=== PATIENT | male | born 1935 | race Caucasian/White ===

== ENCOUNTER 2017-12-07 12:12 | Outpatient (CLI) | payer MEDICARE ==
[2017-12-07 13:15] LABS: MEAN CORPUSCULAR HEMOGLOBIN 29.2 pg (28.0-34.0); MONOCYTES % 7.1 % (0.0-11.0)
[2017-12-07 13:16] LABS: BASOPHILS % 0.5 (0.0-1.5); EOSINOPHILS % 3.2 % (0.0-6.8); NEUTROPHILS # 5.8 # k/uL (1.4-7.7)
[2017-12-07 13:20] LABS: eGFR (Non-African) > 60
== END 2017-12-07 12:16 ==
LOC: LAB 12:12
PROVIDERS: ATTEND Internal Medicine Cardiovascular Disease
DX: I10 Essential (primary) hypertension (principal); I25.10 Atherosclerotic heart disease of native coronary artery without angina pectoris; E78.00 Pure hypercholesterolemia, unspecified
CPT/HCPCS: 36415; 80053; 80061; 85025

== ENCOUNTER 2018-02-27 14:22 | Observation (INO) | payer MEDICARE ==
[2018-02-27] MEDS ORDERED: IPRATROPIUM/ALBUTEROL SULFATE 3 ML AMPUL.NEB NEB STA (14:45)
--- NOTE | 2018-02-27 14:50 | ED Physician Documentation ---
Fall - HISTORIAN Historian: patient, spouse - [facility] Chief Complaint: Fall Onset: other (02/26 afternoon and 02/27 at 0430) Context: tripped (wrapped oxygen cord around leg today; unsure of reason for 02/26 fall) Associated Symptoms:: positive LOC (with 0430 fall) Location of Pain/Injury: other (right ribs) Injury to Right Extremity: forearm (skin tear) Injury to Left Extremity: forearm (skin tear) Further Comments: yes (82 year old male brought in by for evaluation. Patient refused to come in earlier for evaluation. Patient fell on 02/26/2017 in the afternoon and 02/27/2017 at 0430. found him on the floor at 0430, hit head on oak floor, patient reports LOC. states his oxygen was wrapped around his legs. Patient was seen 02/26/[address] Diane in the office c/o cough and congestions. Patient started the amoxil but has not picked up the prednisone prescription. Patient has right inguinal hernia repair 02/19/[address] Godinez at [facility], has been using prn hydrocodone. has noticied increase confusion and dizziness past 48 hours. 02/26/2017- Rash on abdomen noted; patient used new body wash.) - ROS CONST: recent illness (Hernia repair - 02/19/[address] [facility] [address] Godinez) NEURO: dizziness EYES/ENT: none CVS/RESP: shortness of breath (productive cough) GI/: denies: problems urinating, nausea, vomiting - PAST HX Past History: COPD, other (HTN, cataracts, HLD, BPH - self caths, Home oxygen 2L NC) Allergies/Adverse Reactions: Allergies Allergy/AdvReac Type Severity Reaction Status Date / Time No Known Allergies Allergy Verified 02/27/18 14:56 Home Medications: Ambulatory Orders Medication Instructions Recorded Aspirin [Aspir-Low] 1 tab PO DAILY 02/27/18 Bimatoprost [Lumigan 0.01%] 1 drop LEFTEYE HS 02/27/18 Finasteride [Proscar] 1 tab PO DAILY 02/27/18 Fluticasone/Umeclidin/Vilanter 1 puff INH DAILY 02/27/18 [Trelegy Ellipta 100-62.5-25] Hydrochlorothiazide [Hydrodiuril] 1 tab PO DAILY 02/27/18 Metoprolol Tartrate [Lopressor] 1 tab PO DAILY 02/27/18 Rosuvastatin Calcium [Crestor] 1 tab PO DAILY 02/27/18 Tamsulosin HCl [Flomax] 1 tab PO DAILY 02/27/18 - SOCIAL HX Smoking History: quit greater than 1 year - FAMILY HX Family History: none - REVIEWED ASSESSMENTS Nursing Assessment Reviewed: Yes Vitals Reviewed: Yes Progress - Progress Progress: Venous CO2 39 - ABG obtained; results reviewed. No previous ABG in records. [address] Diane - will admit to observation status. 1654 Continues to wheeze with diminished breath sounds in bases. Solumedrol started and repeated nebulizer treatment. - EKG/XRAY/CT EKG: rhythm (Sr, Rate 88) ED Results Lab/Radiology - Radiology Radiology Impressions: Examination: CT head without contrast History: FALL TODAY, HIT HEAD, LOC, CONTUSION TO RT EYE Comparison exam: None available Technique: Noncontrast head CT protocol. Findings: Ventricles and sulci are prominent. Cerebrocerebellar parenchyma demonstrates periventricular low attenuation consistent with small vessel disease. No evidence for parenchymal hemorrhage. No evidence for mass or mass effect. No midline shift. No extra axial fluid collections. Partial visualization of the paranasal sinuses, mastoid air cells, orbits, skull and scalp without gross irregularity. Anterior falx calcifications. Impression: Advanced age related changes. No acute parenchymal process. No hemorrhage. Electronically signed on Feb 27, 2018 3:49:[address] by: Jeffrey Bustamante - Orders Orders: ED Orders Category Date Time Status Continuous EKG monitoring Q30M Care 02/27/18 14:40 Active Continuous Pulse Oximetry Q30M Care 02/27/18 14:[address] IV Lock 1T Care 02/27/18 14:40 Active CHEST 2VIEW [RAD] Stat Exams 02/27/18 14:[address] BRAIN W/O CONTRAST Stat Exams 02/27/18 Ordered RIBS UNILAT 2 VIEWS [RAD] Stat Exams 02/27/18 Ordered CBC/PLATELET/DIFF Stat Lab 02/27/18 14:40 Ordered CMP Stat Lab 02/27/18 14:40 Ordered INFLUENZA A&B Stat Lab 02/27/18 14:40 Uncollected TROPONIN I (cTnI) Stat Lab 02/27/18 14:40 Ordered UA W/MICRO IF INDICATED Stat Lab 02/27/18 14:40 Ordered Ipratropium/Albuterol Sulfate [Duoneb] Med 02/27/18 14:45 Stat 3 ml NEB STAT STA Oxygen Daily Oxygen 02/27/18 14:45 Ordered EKG WITH COMPARISON Stat Ther 02/27/18 14:40 Ordered Fall Physical Exam - Physical Exam General Appearance: moderate distress Head: trauma (ecchymosis to right orbit area; left side of forehead) Neck: non-tender, painless ROM, trachea midline Eye: JAIRO, EOMI, lids & conjunct. nml, periorbital edema (mild on right) Resp/CVS: no ecchymosis, breath sounds nml, no resp. distress, heart sounds nml, rib tenderness (right anterior ribs 2-4 and lateral 5-7) Abdomen: soft, no organomegaly, normal bowel sounds, no abdominal bruit, no distension Neuro: oriented x3, CN's nml as tested, sensation nml, motor nml, mood/affect nml, border patrol agent nml, reflexes nml, border patrol agent symmetrical Skin: color nml, no rash, nml palp., dry, other (skin tears on bilateral forearms; multiple areas of ecchymosis on forearms. ) Extremities: atraumatic, pelvis stable, hips non-tender, no pedal edema, nml ROM, nml color/temp Joint: joints nml, nml ROM, Nml gait/weight bearing - Ross Coma Score Eyes Open: Spontaneous Speech: Oriented Motor: Obeys Commands Discharge Clincal Impression: COPD exacerbation, Productive cough, Hypokalemia Altered mental status, unspecified Qualifiers: Altered mental status type: unspecified Qualified Code(s): R41.82 - Altered mental status, unspecified Rib fracture Qualifiers: Encounter type: initial encounter Rib fracture type: single rib Fracture type: closed Laterality: right Qualified Code(s): S22.31XA - Fracture of one rib, right side, initial encounter for closed fracture Referrals: Lilian Diane MD [Primary Care Provider] - 2 Days Condition: Fair Disposition: ADMITTED INPATIENT Decision to Admit: [id number] Decision Time: 16:56
[2018-02-27 15:01] LABS: BASOPHILS % 0.6 (0.0-1.5); EOSINOPHILS % 1.6 % (0.0-6.8); MEAN CORPUSCULAR HEMOGLOBIN 27.8 pg (28.0-34.0); MONOCYTES % 8.9 % (0.0-11.0); NEUTROPHILS # 9.6 # k/uL (1.4-7.7)
[2018-02-27 15:30] LABS: eGFR (Non-African) > 60
[2018-02-27] MEDS ORDERED: methylPREDNISolone SOD SUCC 125 MG/2 ML VIAL IVP ONE (16:48)
[2018-02-27] MEDS ORDERED: ALBUTEROL SULFATE 2.5 MG/3 ML AMPUL.NEB NEB ONE (16:56)
[2018-02-27] MEDS ORDERED: KETOROLAC TROMETHAMINE 30 MG/1ML VIAL IVP ONE (16:59)
[2018-02-27] MEDS ORDERED: POTASSIUM CHLORIDE 20 MEQ TABLET.ER PO ONE (16:59)
[2018-02-27] MEDS ORDERED: ALBUTEROL SULFATE 2.5 MG/3 ML AMPUL.NEB NEB PRN (17:16)
[2018-02-27 17:47] VITALS: BMI 23.6
[2018-02-27 17:55] LABS: APPEARANCE,URINE CLEAR (CLEAR); COLOR,URINE YELLOW (YELLOW); OCCULT BLOOD,URINE 2+ (NEGATIVE); PH URINE 7.5 (5.0 - 8.0)
[2018-02-27 17:56] LABS: UROBILINOGEN URINE 0.2 Eu (0.2-1.0)
[2018-02-27] MEDS ORDERED: LEVOFLOXACIN 500MG/D5W 100ML 100 ML IV ONE (17:58)
[2018-02-27] MEDS ORDERED: TAMSULOSIN HCL 0.4 MG CAP.ER.24H PO SCH (18:00)
[2018-02-27] MEDS: 0.9 % SODIUM CHLORIDE 1,000 ML IV SCH (18:01)
[2018-02-27] MEDS: LEVOFLOXACIN 500MG/D5W 100ML 500 MG in PREMIX BAG 1 BAG IV SCH (18:01)
[2018-02-27] MEDS: IPRATROPIUM/ALBUTEROL SULFATE 3 ML AMPUL.NEB NEB SCH (18:37)
[2018-02-27] MEDS ORDERED: BIMATOPROST LEFTEYE SCH (21:00)
[2018-02-27] MEDS ORDERED: FINASTERIDE 5 MG TABLET PO SCH (21:00)
[2018-02-27] MEDS: SALMETEROL XINAFOATE 50 MCG IH SCH (21:14)
[2018-02-28] MEDS: IPRATROPIUM/ALBUTEROL SULFATE 3 ML AMPUL.NEB NEB SCH ×3 (00:18→12:00)
[2018-02-28] MEDS: methylPREDNISolone SOD SUCC 125 MG/2 ML VIAL IVP SCH ×4 (01:00→12:05)
--- NOTE | 2018-02-28 03:04 | Diagnostic Imaging Report ---
BILLY HERNDON (LEGAL SUMMER INTERN) - ER [facility] [address] [facility] [address] [place], [place]. [address] Report Submission Date: Feb 27, 2018 3:49:49 PM JOURNEYMAN GLAZIER Patient Study Name: TAMMI FLOWERS Date: Feb 27, 2018 3:17:29 PM JOURNEYMAN GLAZIER Modality Type: CT\SR Gender: M Description: CT BRAIN W/O CONTRAST : 37 Institution: [facility] Physician: BILLY HERNDON (PETRA) - ER Examination: CT head without contrast History: FALL TODAY, HIT HEAD, LOC, CONTUSION TO RT EYE Comparison exam: None available Technique: Noncontrast head CT protocol. Findings: Ventricles and sulci are prominent. Cerebrocerebellar parenchyma demonstrates periventricular low attenuation consistent with small vessel disease. No evidence for parenchymal hemorrhage. No evidence for mass or mass effect. No midline shift. No extra axial fluid collections. Partial visualization of the paranasal sinuses, mastoid air cells, orbits, skull and scalp without gross irregularity. Anterior falx calcifications. Impression: Advanced age related changes. No acute parenchymal process. No hemorrhage. Electronically signed on Feb 27, 2018 3:49:49 PM JOURNEYMAN GLAZIER by: Jeffrey MENG
--- NOTE | 2018-02-28 03:05 | Diagnostic Imaging Report ---
BILLY HERNDON (WELT RANDER) - ER [facility] [address] [facility].[address] [address] Report Submission Date: Feb 27, 2018 4:26:47 PM QUITLINE COUNSELOR Patient Study Name: TAMMI FLOWERS Date: Feb 27, 2018 2:54:55 PM QUITLINE COUNSELOR Modality Type: DX Gender: M Description: CHEST : 37 Institution: [facility] Physician: BILLY HERNDON (PETRA) - ER Examination: Plain film chest/right ribs History: Injury Findings: 6 views of the chest and right ribs demonstrates a faint lucency involving the 10th rib laterally. No other cortical abnormalities. Underlying parenchymal without abnormality. Emphysematous changes. No focal consolidation or blunting of the costophrenic margins. Impression: Nondisplaced 10th rib fracture. Emphysematous changes without consolidation/effusion. Electronically signed on Feb 27, 2018 4:26:47 PM QUITLINE COUNSELOR by: Jeffrey MENG
--- NOTE | 2018-02-28 03:14 | Diagnostic Imaging Report ---
BILLY HERNDON (WIRE WEB WORKER) - ER [facility] [address] [facility].[address] [address] Report Submission Date: Feb 27, 2018 4:26:47 PM WAREHOUSE PRICING AND INVENTORY CLERK Patient Study Name: TAMMI FLOWERS Date: Feb 27, 2018 2:54:55 PM WAREHOUSE PRICING AND INVENTORY CLERK Modality Type: DX Gender: M Description: CHEST : 37 Institution: [facility] Physician: BILLY HERNDON (PETRA) - ER Examination: Plain film chest/right ribs History: Injury Findings: 6 views of the chest and right ribs demonstrates a faint lucency involving the 10th rib laterally. No other cortical abnormalities. Underlying parenchymal without abnormality. Emphysematous changes. No focal consolidation or blunting of the costophrenic margins. Impression: Nondisplaced 10th rib fracture. Emphysematous changes without consolidation/effusion. Electronically signed on Feb 27, 2018 4:26:47 PM WAREHOUSE PRICING AND INVENTORY CLERK by: Jeffrey MENG
[2018-02-28] MEDS ORDERED: methylPREDNISolone SOD SUCC 125 MG/2 ML VIAL ONE (04:53)
[2018-02-28 06:51] LABS: MEAN CORPUSCULAR HEMOGLOBIN 27.6 pg (28.0-34.0); MONOCYTES % 2.3 % (0.0-11.0)
[2018-02-28 06:52] LABS: BASOPHILS % 0.3 (0.0-1.5); EOSINOPHILS % 0.9 % (0.0-6.8); NEUTROPHILS # 11.3 # k/uL (1.4-7.7); eGFR (Non-African) > 60
[2018-02-28] MEDS: 0.9 % SODIUM CHLORIDE 1,000 ML IV SCH ×3 (07:08→14:44)
[2018-02-28] MEDS ORDERED: LEVOFLOXACIN 500MG/D5W 100ML 100 ML IV ONE (07:13)
[2018-02-28] MEDS ORDERED: POTASSIUM CHLORIDE 20 MEQ TABLET.ER PO ONE (07:32)
[2018-02-28] MEDS ORDERED: HYDROcodone /APAP 5/325 1 EACH TABLET PO PRN (07:38)
[2018-02-28] MEDS: LEVOFLOXACIN 500MG/D5W 100ML 500 MG in PREMIX BAG 1 BAG IV SCH (08:22)
[2018-02-28] MEDS: SALMETEROL XINAFOATE 50 MCG IH SCH (08:32)
[2018-02-28] MEDS ORDERED: ASPIRIN 81 MG CHEW TAB PO SCH (09:00)
[2018-02-28] MEDS ORDERED: METOPROLOL TARTRATE 50 MG TABLET PO SCH (09:00)
[2018-02-28] MEDS ORDERED: TIOTROPIUM BROMIDE INHALER IH SCH (09:00)
[2018-02-28] MEDS ORDERED: VILANTER INH SCH (09:00)
[2018-02-28] MEDS ORDERED: HYDROCHLOROTHIAZIDE 25 MG TABLET PO SCH (09:00)
[2018-02-28] MEDS ORDERED: UMECLIDIN INH SCH (09:00)
[2018-02-28] MEDS ORDERED: [UNRECOGNIZED DRUG - OTHER] INH SCH (09:00)
[2018-02-28] MEDS ORDERED: methylPREDNISolone SOD SUCC 125 MG/2 ML VIAL IVP SCH (09:00)
[2018-02-28] MEDS ORDERED: FLUTICASONE INH SCH (09:00)
[2018-02-28 12:10] VITALS: BP 121/57
--- NOTE | 2018-02-28 12:32 | Discharge Summary ---
Discharge Summary - Discharge Sumary History of Present Illness: Patient admitted observation after sustaining 2 falls at home resulting in a R rib fracture. Patient had been seen 2 days before in clinic for mild COPD exacerbation (on home O2) - filled antibiotic but did not fill prednisone. Found to be a bit more hypoxic in ER based on his baseline SAT. Given IV steroids in the ER. Home Medications: Ambulatory Orders Medication Instructions Recorded Aspirin [Aspir-Low] 1 tab PO DAILY 02/27/18 Bimatoprost [Lumigan 0.01%] 1 drop LEFTEYE HS 02/27/18 Finasteride [Proscar] 1 tab PO DAILY 02/27/18 Fluticasone/Umeclidin/Vilanter 1 puff INH DAILY 02/27/18 [Trelegy Ellipta 100-62.5-25] Hydrochlorothiazide [Hydrodiuril] 1 tab PO DAILY 02/27/18 Metoprolol Tartrate [Lopressor] 1 tab PO DAILY 02/27/18 Rosuvastatin Calcium [Crestor] 1 tab PO DAILY 02/27/18 Tamsulosin HCl [Flomax] 1 tab PO DAILY 02/27/18 Consultations this Visit: None Procedures this Visit: None Allergies/Adverse Reactions: Allergies Allergy/AdvReac Type Severity Reaction Status Date / Time No Known Allergies Allergy Verified 02/27/18 14:56 Discharge Summary: Patient did well in observation. I counseled against pain medicine as he had some confusion at home when he was using it. Weaned back to baseline O2. Patient instructed to get prednisone and start it today. I strongly encouraged home health but patient refused it. Will do outpatient therapy. Finish antibiotics as outpatient. Hospital Course: Discharge Dx: Falls. R rib fx. COPD. Disposition - home
[2018-03-04 09:02] LABS: ABG PH 7.48 (7.35-7.45)
== END 2018-02-28 14:25 | disposition home or self-care (01) ==
LOC: ED 14:22 → SOUTH 17:01
PROVIDERS: ADMIT Family Medicine; ATTEND Family Medicine
DX: S00.11XA Contusion of right eyelid and periocular area, initial encounter (principal); S22.31XA Fracture of one rib, right side, initial encounter for closed fracture; J44.9 Chronic obstructive pulmonary disease, unspecified; R41.82 Altered mental status, unspecified; W19.XXXA Unspecified fall, initial encounter; Y93.89 Activity, other specified; Y92.009 Unspecified place in unspecified non-institutional (private) residence as the place of occurrence of the external cause
CPT/HCPCS: 36600; 70450; 71046; 71100; 80053; 81002; 82803; 83036; 84484; 85025; 87040; 87400; 94640; 96365; 96366; 99217; 99285; J1885; J1956; J2930; A9270; A9270-GY; G0378; J7030; S1016

== ENCOUNTER 2018-05-23 10:00 | Outpatient (CLI) | payer MEDICARE ==
[2018-05-23 10:24] LABS: BASOPHILS % 1.3 % (0.0-1.5); EOSINOPHILS % 3.5 % (0.0-6.8); MEAN CORPUSCULAR HEMOGLOBIN 27.5 pg (28.0-34.0); MONOCYTES % 5.2 % (0.0-11.0); NEUTROPHILS # 5.6 # k/uL (1.4-7.7)
[2018-05-23 10:55] LABS: eGFR (Non-African) > 60
== END 2018-05-23 12:56 ==
LOC: LAB 10:00
PROVIDERS: ATTEND Internal Medicine Cardiovascular Disease
DX: I10 Essential (primary) hypertension (principal); I25.10 Atherosclerotic heart disease of native coronary artery without angina pectoris; E78.00 Pure hypercholesterolemia, unspecified
CPT/HCPCS: 36415; 80053; 80061; 85025